=== PATIENT | female | born 2000 | race Caucasian/White ===

== ENCOUNTER 2023-06-24 09:39 | Outpatient (CLI) | payer BC, SELFPAY ==
--- NOTE | 2023-06-24 09:44 | US_ITS ---
WS: [id number] EARLY OBSTETRICAL ULTRASOUND (<14 WEEKS). HISTORY: SUPERVISION OF FIRST ,FIRST TRIMESTER COMPARISON: None available. Single intrauterine gestational sac is identified. Cardiac activity at 167 BPM. [place]-rump length iraida sures 3.9 cm which corresponds to a gestation of 10w5d. Normal-appearing yolk sac and amnion demonstr ated. No subchorionic hemorrhage. No free fluid. LEFT ovaries not identified. Negative RIGHT ovary. IMPRESSION: 1. Single intrauterine gestation of 10 weeks 5 days with an EDC of 01/15/2024. 2. Normal cardiac activity.
== END 2023-06-24 09:40 | disposition home or self-care (01) ==
LOC: RAD 09:39
PROVIDERS: Visit Provider Family Medicine
DX: Z34.01 Encounter for supervision of normal first pregnancy, first trimester (principal); Z3A.10 10 weeks gestation of pregnancy
CPT/HCPCS: 76801

== ENCOUNTER 2023-08-26 09:27 | Outpatient (CLI) | payer BC, SELFPAY ==
--- NOTE | 2023-08-26 09:38 | USR_ITS ---
PROCEDURE INFORMATION: Exam: US , Limited Exam date and time: 08/26/2023 9:52 AM Age: 23 years old Clinical indication: Screening exam; Routine US, uterus; Additional info: Anatomy check/first , second trimester LABS AND CLINICAL REPORTS: Gestational age (Established): 19 w 5 d Estimated due date (Established): 01/15/2024 TECHNIQUE: Imaging protocol: Real-time ultrasound of the maternal uterus with image documentation. Exam focused on the clinical indication. Total image count = 71 images. COMPARISON: US OB <= 14 weeks fetus [id number] 06/24/2023 9:50 AM FINDINGS: Gestation: Intrauterine gestation. heart rate: 165 bpm Amniotic fluid index: NARESH is 12.38 cm. The placenta is anterior and does not appear to form a previa. BIOMETRY: Estimated weight: 318.48 g. EFW by AC, BPD, FL, HC, [place] 1985 Biparietal diameter (BPD): 4.57 cm. EGA (BPD) is 19 w 6 d. 54.6 % percentile Head circumference (HC): 17.17 cm. EGA (HC) is 19 w 5 d. 44 % percentile Abdominal circumference (AC): 14.77 cm. EGA (AC) is 20 w 0 d. 56.2 % percentile Femur length (FL): 3.13 cm. EGA (FL) is 19 w 5 d. 42.5 % percentile Cephalic Index (CI): 76.17. (Normal range: 70 - 86) HC/AC: 1.16. (Normal range: 1.08 - 1.26) FL/HC: 18.23. (Normal range: 16.7 - 19.59) FL/BPD: 68.49 FL/AC: 21.19 Anatomical survey demonstrates four-chamber heart, three-vessel cord and unremarkable cord insertion. The bladder was unremarkable. The stomach was unremarkable. Nose and lips and cerebellar diameter spine visualization was limited but with no abnormality noted. The kidneys and diaphragm were not well visualized. MATERNAL: Cervix: Cervical length measures 4.2 cm. The cervix appears closed. US/US OB >= 14 weeks fetus [id number] IMPRESSION: 1. Living intrauterine gestation at estimated 19 weeks 6 days +/-1 week and 3 days. 2. Anterior placenta without evidence of previa. 3. Limited anatomical survey, no definite abnormality identified. Follow-up for anatomic survey completion recommended.
== END 2023-08-26 09:28 | disposition home or self-care (01) ==
LOC: RAD 09:28
PROVIDERS: Visit Provider Family Medicine
DX: Z34.02 Encounter for supervision of normal first pregnancy, second trimester (principal)
CPT/HCPCS: 76805

== ENCOUNTER 2023-09-09 09:30 | Outpatient (CLI) | payer BC, SELFPAY ==
--- NOTE | 2023-09-09 10:00 | US_ITS ---
WS: [id number] LIMITED OBSTETRICAL ULTRASOUND HISTORY: FOLLOW UP/GROWTH SCAN COMPARISON: 08/26/2023 Presentation: Breech Cervix: Closed and normal length. Placenta: Anterior, no previa or abruption. Grade: 1 HEART: FHR of 141 BPM. measurements: BPD = 4.9 cm = 20w6d; 18% HC = 19.4 cm = 21w5d; 36% AC = 16.2 cm = 21w2d; 28% FL = 3.7 cm = 21w5d; 38% NARESH: Normal EFW: 423.9 g; 30.1 % AGA by ultrasound: 21 weeks 3 days CARLENE by ultrasound: 01/17/2024 Reevaluation of the nose, lips, head, kidneys also performed. Nose and lips are negative. There is m ild dilatation of the LEFT renal pelvis. Less than 5 mm in diameter. Intracranial structures are nega tive. IMPRESSION: 1. Single intrauterine gestation of 21w3d with an CARLENE of 01/17/2024. Appropriate growth of the fetus since 06/24/2023. 2. Reevaluation of the nose, lips and intracranial structures and kidneys are performed. There is ve ry slight dilatation of the LEFT renal pelvis but less than 5 mm. Not considered significant.
== END 2023-09-09 09:31 | disposition home or self-care (01) ==
LOC: RAD 09:31
PROVIDERS: PCP Family Medicine; Visit Provider Family Medicine
DX: Z36.89 Encounter for other specified antenatal screening (principal)
CPT/HCPCS: 76816

== ENCOUNTER 2024-01-18 14:46 | Inpatient (IN) | payer BC, SELFPAY ==
[2024-01-18] VITALS (17 sets, daily range): BP systolic 110–135; BP diastolic 59–83; PULSE 55–81; RESP 17; BMI 28.6
--- NOTE | 2024-01-18 14:35 | P.HP_ITS ---
Providers/Chief Complaint 2 Admitting Physician: Jessica Tomas DO Primary Care Provider: Jessica Tomas DO Chief Complaint: Contractions HPI DISABILITY EXAMINER History of Present Illness Yarelis Ewing is a 23 year old female at 40w3d based on 10wk US presenting for contractions with past medical history of childhood asthma and seasonal allergies. Contractions started yesterday evening and have gradually increased. Denies LOF, vaginal bleeding. Reports normal movement. course relatively uncomplicated- labs significant for rubella and VZV non-immune. Present Details : 1 Para: 0 Labs Blood type OB HPI: B (+) positive Rubella: Non-Immune RPR: Negative GBS: Negative HBsAG: Negative Other Lab Information: HIV negative VZV non-immune GC/Chlam negative Initial H/H 13.6/39.9 Pap smear NILM [id number] wnl 1hr GTT 120-passed 3rd trimester H/H 12.3/37.2 Review of Systems 2 Const: Denies: fever(s), chills or body aches Card: Denies: chest pain or palpitations Resp: Denies: dyspnea, productive cough, non-productive cough or wheezing : Denies: dysuria or vaginal bleeding Medications/Allergies Allergies Allergy/AdvReac Type Severity Reaction Status Date / Time No Known Drug Allergies Allergy Unknown Unknown Verified 01/18/24 13:14 History History History 2 1 Term 0 0 Miscarriages/Ectopic 0 Living Children 0 Vitals/I&O/Wt Last Vital Signs Pulse 65 01/18/24 13:30 Resp 17 01/18/24 14:09 BP 112/68 01/18/24 13:30 O2 Del Method Room Air 01/18/24 14:14 Weight last 48 hrs Weight 183 lb Physical Exam 2 Const: COMMON NORMALS: no acute distress, patient oriented x3, no limitations and healthy appearing Resp: COMMON NORMALS: normal respiratory effort and clear to auscultation bilaterally Cardio: COMMON NORMALS: regular rate, regular rhythm, S1 normal heart sound present, S2 normal heart sound present and No murmurs present (Cardio) : OTHER: SVE 4/80/-3, midposition, soft gravid- size=dates Extremity: OTHER: No LE edema Data 01/18/24 14:40 Results Labs OB ([facility]): 2 Obstetrics US 09/09/23 Blood Type B Positive 01/18/24 Antibody Screen Pending 01/18/24 Hct 35.7 % (36-47) L 01/18/24 Hgb 10.90 g/dL (11.27-16.99) L 01/18/24 Rho(D) Type Rh positive 01/18/24 Plt Count 184 10^3/cmm (157-399) 01/18/24 A&P Assessment and plan (1) Spontaneous onset of labor: Plan 23yo F at 40w3d presenting with contractions- she has made cervical change since admission and is in latent labor phase. Admit for labor. Routine CBC, blood typing. Intermittent EFM as long as Category I FHT. May have epidural when desired. Fentanyl protocol prior. Expectant management at this point- discussed plan of care with patient and she is agreeable to proceed. Attestations 2 Medical Necessity Statement*: Yarelis Ewing's hospital stay will require greater than 2 midnights for routine labor and delivery and care Coding Level of Care Code Acute Code for Chg Fwd Diagnoses Spontaneous onset of labor
[2024-01-18 14:53] LABS: Basophils % 0.3 %; Eosinophils % 0.1 %; Hematocrit 35.7 % (36-47); Lymphocytes # 1.8 10^3/uL (0.8-4.8); Lymphocytes % 13.1 %; Mean Corpuscular HGB Conc 30.5 g/dL (30-55); Mean Corpuscular Hemoglobin 24.8 pg (27-33); Mean Corpuscular Volume 81.1 fl (85-98); Monocytes # 0.7 10^3/uL (0.2-0.9); Monocytes % 5.3 %; Neutrophils # 10.86 10^3/uL (1.8-7.7); Neutrophils % 80.6 %; Nucleated Red Blood Cells % 0 %; Platelet Count 184 10^3/cmm (157-399); Red Cell Distribution Width 13.5 % (12.1-15.1); White Blood Count 13.47 10^3/uL (3.29-11.43)
[2024-01-18] MEDS: fentaNYL 50 mcg/mL INJ 2mL IVP ×2 (20:31→22:15)
[2024-01-19] VITALS (14 sets, daily range): BP systolic 102–137; BP diastolic 57–82; PULSE 64–93; RESP 16–17; TEMP 36.6–36.8; O2SAT 98–99
[2024-01-19] MEDS: oxytocin 30 UNIT/500 ML BAG 600 UNIT IV (02:13)
[2024-01-19] MEDS: lidocaine 2% INJ 20 mL INJECTION (02:17)
[2024-01-19] MEDS: dextrose 5%-lactated ringers 1,000 ML 125 ML IV (02:26)
--- NOTE | 2024-01-19 02:54 | P.PCNOB_ITS ---
Delivery Note: Date of delivery: January 19, 2024 Pre-delivery diagnoses: Spontaneous labor Term Post-delivery diagnoses: Delivery of viable male Procedure: Spontaneous vaginal delivery Delivering Physician: Jessica Tomas DO Estimated blood loss (mL): 500 Pre-Delivery Course: She was admitted with contractions and spontaneous labor on 01/18/2024 with an initial SVE of 3/80/-3. She gradually progressed to 8/95/-3 after which AROM was performed at 00 32 on 01/19/2024. She then appropriately progressed to complete. Delivery: Patient progressed to complete. Patient placed in lithotomy position. Patient pushed with adequate effort. Head delivered in GUNNAR position, no nuchal cord was present. Shoulders and rest of body delivered without difficulty with no anesthesia. Mouth and nares bulb suctioned. Cord clamped and cut after 1 minute delay. placed on maternal abdomen. Placenta spontaneously delivered and noted to be intact. Pitocin started initially however was noted to have had her IV gone bad. Fundus was noted to be moderately firm with consistent gush of blood. New IV was quickly started and Pitocin initiated as well as bimanual massage. Fundus was then noted to be firm the vagina and cervix were inspected and midline vaginal first-degree and right labial first-degree lacerations were noted. Midline first-degree was noted to be bleeding and was repaired with 3-0 Vicryl. Right labial laceration was noted to be hemostatic and did not require repair. Fundus was again noted to be firm. Male born at 0208 with 8/9 weighing 8 pounds 1 ounce and measuring 20.5 in length, 14.25 Man conference and 14.25 head circumference Placenta noted to be intact with centrally inserted umbilical cord and three- vessel cord. Complications: Maternal none Infant none History History History 1 Term 1 0 Miscarriages/Ectopic 0 Living Children 1 A&P Assessment and plan (1) Spontaneous vaginal delivery: Coding Level of Care Code Acute Code for Chg Fwd Diagnoses Spontaneous vaginal delivery O80
[2024-01-19] MEDS: benzocaine-menthol 78 gm Canister 1 SPRAY TOPICAL (04:47)
[2024-01-19] MEDS: lanolin oint 7 gm 1 APPLIC TOPICAL (04:47)
--- NOTE | 2024-01-19 05:15 | PC.NURSE ---
Patient requested her IV be taken out due to pain at site. Patient reports baby was pulling on it while she was skin to skin and . Discussed risks of not having IV access in case of emergency and patient stated that she would allow another IV in the event of an emergency later.
[2024-01-19] MEDS: ibuprofen 800 mg tablet PO ×2 (09:49→20:55)
[2024-01-19] MEDS: PRENATAL VIT NO.130/IRON/FOLIC 1 EACH TABLET PO (09:49)
[2024-01-19] MEDS: ferrous sulfate EC 325 mg Tablet PO (09:49)
[2024-01-19] MEDS: docusate sodium 100 mg Capsule PO ×2 (09:49→20:55)
[2024-01-19 16:59] LABS: Hematocrit 30.4 % (36-47); Mean Corpuscular HGB Conc 32.2 g/dL (30-55); Mean Corpuscular Hemoglobin 25.7 pg (27-33); Mean Corpuscular Volume 79.6 fl (85-98); Mean Platelet Volume 11.1 fL (7.4-10.4); Platelet Count 235 10^3/cmm (157-399); Red Blood Count 3.82 10^6/uL (3.85-5.65); White Blood Count 18.14 10^3/uL (3.29-11.43)
[2024-01-20 04:00] VITALS: BP 92/55; PULSE 65; RESP 18; TEMP 36.8; O2SAT 98
--- NOTE | 2024-01-20 09:07 | PM.OBGYDC ---
Discharge Providers INVENTORY CONTROL/SHIPPING RECEIVING Date of Admission: 01/18/24 14:46 Date of Discharge: 01/20/24 Attending Provider at Admission: Jessica Tomas DO Attending Provider at Discharge: Jessica Tomas DO Primary Care Provider: Jessica Tomas DO Diagnoses at Discharge Discharge Diagnosis (1) Spontaneous vaginal delivery: Status: Acute Reason for Visit Reason for Visit: Contractions Hospital Course Hospital Course Pre-Delivery Course: She was admitted with contractions and spontaneous labor on 01/18/2024 with an initial SVE of 380/-3. She gradually progressed to 8/-3 after which AROM was performed at 00 32 on 01/19/2024. She then appropriately progressed to complete. Delivery: Patient progressed to complete. Patient placed in lithotomy position. Patient pushed with adequate effort. Head delivered in GUNNAR position, no nuchal cord was present. Shoulders and rest of body delivered without difficulty with no anesthesia. Mouth and nares bulb suctioned. Cord clamped and cut after 1 minute delay. Infant placed on maternal abdomen. Placenta spontaneously delivered and noted to be intact. Pitocin started initially however was noted to have had her IV gone bad. Fundus was noted to be moderately firm with consistent gush of blood. New IV was quickly started and Pitocin initiated as well as bimanual massage. Fundus was then noted to be firm the vagina and cervix were inspected and midline vaginal first-degree and right labial first-degree lacerations were noted. Midline first-degree was noted to be bleeding and was repaired with 3-0 Vicryl with lidocaine for local anesthesia. Right labial laceration was noted to be hemostatic and did not require repair. Fundus was again noted to be firm. Male born at 0208 with 8/9 weighing 8 pounds 1 ounce and measuring 20.5 in length, 14.25 Man conference and 14.25 head circumference Placenta noted to be intact with centrally inserted umbilical cord and three-vessel cord. Complications: Maternal none none course: Patient underwent on 01/19/24. course was uncomplicated. Following delivery patient ambulated well, tolerated a normal diet without nausea or vomiting. Pain was well controlled on PO medications, well, no leg/calf pain, no calf/leg swelling, normal urination, passing gas and normal bowel movements. Vaginal bleeding thin lochia and decreasing. labs significant for hemoglobin 9.8 down from 10.9 on admission. She is discharged on iron supplementation. Follow-up planned for 2 and 6 weeks . Warning signs for endometritis, pre-eclampsia, DVT/PE, mastitis were reviewed, discussed additional warning signs including increased vaginal bleeding, worsening abdominal pain. Pelvic rest and activity precautions reviewed as well. She is discharged on 01/20/24 in stable condition. Information Peripartum Data: Infant Delivery Method: Vaginal Physical Exam Const: COMMON NORMALS: no acute distress, patient oriented x3, no limitations and healthy appearing Resp: COMMON NORMALS: normal respiratory effort and clear to auscultation bilaterally AUSCULTATION: clear to auscultation bilaterally Cardio: COMMON NORMALS: regular rate, regular rhythm, S1 normal heart sound present, S2 normal heart sound present and No murmurs present (Cardio) RATE: regular rate RHYTHM: regular rhythm HEART SOUNDS: S1 normal heart sound present and S2 normal heart sound present : OTHER: Uterine fundus firm and below the umbilicus Extremity: OTHER: No LE edema Neuro: COMMON NORMALS: patient oriented x3 History History History 1 Term 1 0 Miscarriages/Ectopic 0 Living Children 1 Discharge Data Studies Completed and Pending Laboratory Results WBC 18.14 10^3/uL (3.29-11.43) H 01/19/24 16:30 RBC 3.82 10^6/uL (3.85-5.65) L 01/19/24 16:30 Hgb 9.80 g/dL (11.27-16.99) L 01/19/24 16:30 Hct 30.4 % (36-47) L 01/19/24 16:30 MCV 79.6 fl (85-98) L 01/19/24 16:30 MCH 25.7 pg (27-33) L 01/19/24 16:30 MCHC 32.2 g/dL (30-55) D 01/19/24 16:30 RDW 14.0 % (12.1-15.1) 01/19/24 16:30 Plt Count 235 10^3/cmm (157-399) 01/19/24 16:30 MPV 11.1 fL (7.4-10.4) H 01/19/24 16:30 Neut % (Auto) 80.6 % 01/18/24 14:40 Lymph % (Auto) 13.1 % 01/18/24 14:40 [place] % (Auto) 5.3 % 01/18/24 14:40 Eos % (Auto) 0.1 % 01/18/24 14:40 Baso % (Auto) 0.3 % 01/18/24 14:40 Neut # (Auto) 10.86 10^3/uL (1.8-7.7) H 01/18/24 14:40 Lymph # (Auto) 1.8 10^3/uL (0.8-4.8) 01/18/24 14:40 [place] # (Auto) 0.7 10^3/uL (0.2-0.9) 01/18/24 14:40 Eos # (Auto) 0.0 10^3/uL (0.0-0.8) 01/18/24 14:40 Baso # (Auto) 0.0 10^3/uL (0.0-0.1) 01/18/24 14:40 Nucleated RBC % (auto) 0 % 01/18/24 14:40 Nucleated RBCs # 0.0 /100WBC 01/18/24 14:40 Blood Type B Positive 01/18/24 14:40 Rho(D) Type Rh positive 01/18/24 14:40 Antibody Screen Negative 01/18/24 14:40 Vitals Last Vital Signs Temp 98.2 F 01/20/24 04:00 Pulse 65 01/20/24 04:00 Resp 18 01/20/24 04:00 BP 92/55 01/20/24 04:00 Pulse Ox 98 01/20/24 04:00 O2 Del Method Room Air 01/20/24 04:00 Results Labs OB ([facility]): Obstetrics US 09/09/23 Blood Type B Positive 01/18/24 Antibody Screen Negative 01/18/24 Hct 30.4 % (36-47) L 01/19/24 Hgb 9.80 g/dL (11.27-16.99) L 01/19/24 Rho(D) Type Rh positive 01/18/24 Plt Count 235 10^3/cmm (157-399) 01/19/24 Discharge Plan Discharge Patient Disposition: Home Condition: Stable Prescriptions: New docusate sodium 100 mg Capsule 100 mg PO BID Qty: 60 0RF ferrous sulfate 325 mg (65 mg iron) Tablet,Delayed Release (Dr/Ec) 325 mg PO DAILY Qty: 90 0RF ibuprofen 800 mg Tablet 800 mg PO TID Qty: 90 0RF Discharge Orders: Discharge Order (Routine); Ordered 01/20/24 Ordered By: Jessica Tomas Referrals: Jessica Tomsa DO [Primary Care Provider] - 02/03/24 2:45 pm (4 WEEK PP APPOINTMENT: 03/04/24 @ 3:00 PM) Discharge Diet: Regular Discharge Activity: Increase activity as tolerated Patient Instructions: Depression (DC), Opioid Safety (DC), Preeclampsia and Eclampsia After Delivery (GEN), Hemorrhage (DC), OB Discharge Report, OB Food/Drug Interaction Guide, OB Care at Home, Opioid Safety, OB Vaginal Deliveries, Abnormal Bleeding Activity Restrictions/Additional Instructions: Pelvic rest for 6 weeks. Follow-up with Dr. Tomas at 2 and 6 weeks . Discharge Attestations INVENTORY CONTROL/SHIPPING RECEIVING Time Spent in Discharge Care*: less than 30 min Coding Level of Care Code Acute Code for Chg Fwd Diagnoses Spontaneous vaginal delivery O80
[2024-01-20] MEDS: measles,mumps,rubella pf Vial (w/diluent) 0.5 ML SUBCUT (10:11)
[2024-01-20] MEDS: ibuprofen 800 mg tablet PO (10:12)
[2024-01-20] MEDS: PRENATAL VIT NO.130/IRON/FOLIC 1 EACH TABLET PO (10:12)
[2024-01-20] MEDS: ferrous sulfate EC 325 mg Tablet PO (10:12)
[2024-01-20] MEDS: docusate sodium 100 mg Capsule PO (10:12)
[2024-01-20 12:00] VITALS: BP 105/67; PULSE 68; RESP 17; TEMP 36.8
== END 2024-01-20 12:15 | disposition home or self-care (01) | DRG 807 ==
LOC: OPOB 18:41 → OBGYN 18:41
PROVIDERS: Admitting Provider Family Medicine; PCP Family Medicine; Visit Provider Family Medicine
DX: O48.0 Post-term pregnancy (principal); Z37.0 Single live birth; Z3A.40 40 weeks gestation of pregnancy; O70.0 First degree perineal laceration during delivery
CPT/HCPCS: 36415; 59025; 59409; 85025; 85027; 86850; 86900; 90707; 96372; 96374; 96376; 99211; J2590; J3010; J7121

== ENCOUNTER → 2024-10-10 12:09 | Outpatient (BNVA) | payer BC, SELFPAY | PROVIDERS: PCP Family Medicine | DX: J02.9 Acute pharyngitis, unspecified (principal) | CPT/HCPCS: 87071; 87880 ==